=== PATIENT | female | born 1995 ===

== ENCOUNTER 2018-12-01 07:58 | Outpatient (CLI) | payer OTHER ==
[2018-12-01] MEDS ORDERED: PRENATAL TABLE1 EAC1 PO (08:32)
[2018-12-01] MEDS ORDERED: PROGESTERO50 MG/1 ML IM (08:32)
== END 2018-12-01 15:06 | disposition home or self-care (01) ==
LOC: OBS/DEL 07:58
DX: O28.1 Abnormal biochemical finding on antenatal screening of mother (principal); O60.02 Preterm labor without delivery, second trimester; O35.3XX0 Maternal care for (suspected) damage to fetus from viral disease in mother, not applicable or unspecified; O26.892 Other specified pregnancy related conditions, second trimester; R10.2 Pelvic and perineal pain

== ENCOUNTER 2019-03-06 10:26 | Inpatient (IN) | payer OTHER ==
[~2019-03-06] VITALS: Ht 160 cm; Wt 93.4 kg
[~2019-03-06 10:26] MED LIST: PRENATAL TABLE1 EAC1 PO; PROGESTERO50 MG/1 ML IM
== END 2019-03-08 16:17 | DRG 807 ==
LOC: LDR 10:26 → OB/GYN 10:26 → LDR 11:54 → OB/GYN 19:29
PROVIDERS: ADMIT Specialist
PROC: 10E0XZZ Delivery of Products of Conception, External Approach (ICD-10-PCS; principal; 2019-03-06)
PROC: 4A1HXCZ Monitoring of Products of Conception, Cardiac Rate, External Approach (ICD-10-PCS; 2019-03-06)
PROC: 4A033R1 Measurement of Arterial Saturation, Peripheral, Percutaneous Approach (ICD-10-PCS; 2019-03-06)
PROC: BY4FZZZ Ultrasonography of Third Trimester, Single Fetus (ICD-10-PCS; 2019-03-06)
DX: O60.14X0 Preterm labor third trimester with preterm delivery third trimester, not applicable or unspecified (principal); Z37.0 Single live birth; Z3A.35 35 weeks gestation of pregnancy; Z22.330 Carrier of Group B streptococcus